=== PATIENT | female | born 1985 | race Caucasian/White ===

== ENCOUNTER 2018-04-30 04:17 | Inpatient (IN) | payer BC ==
[2018-04-30] VITALS (38 sets, daily range): BP systolic 103–145; BP diastolic 57–89; PULSE 63–103; TEMP 97.3–98.8
[~2018-04-30] VITALS: Ht 162.6 cm; Wt 91.8 kg
[2018-04-30] MEDS ORDERED: PRENATAL PO (06:06)
[2018-04-30] MEDS ORDERED: CLARITIN 1010 MG/TAB PO (06:09)
[2018-04-30 06:11] LABS: BASO % 0.3 % (0.0-2.0); EOS # 0.2 (0.0-0.7); EOS % 1.5 % (0-4.0); GRAN # 10.3 (1.4-6.5); GRAN % 76.9 % (42.2-75.2); HEMATOCRIT 36.1 % (37.0-47.0); HEMOGLOBIN 12.3 g/dl (12.5-16.0); LYMPH # 1.6 (1.2-3.4); LYMPH % 11.9 % (20.0-51.0); MEAN CELL VOLUME 92 fl (80.0-100.0); MEAN CORPUSCULAR HEMOGLOBIN 31 pg (27.0-31.0); MEAN CORPUSCULAR HGB CONC 34 g/dl (33.0-37.0); MEAN PLATELET VOLUME 11.6 fl (7.4-10.4); MONO # 1.1 (0.1-0.6); MONO % 8.6 % (1.7-9.3); PLATELET COUNT 188 K/mm3 (130-400); RED BLOOD COUNT 3.92 M/mm3 (4.10-5.30); REDCELL DISTRIBUTION WIDTH-CV 12.2 % (11.5-14.5)
[2018-05-01 01:20] VITALS: BP 108/71; PULSE 95; TEMP 98.6
[2018-05-01 05:15] VITALS: BP 109/72; PULSE 86; TEMP 98.2
[2018-05-01 07:45] VITALS: BP 107/70; PULSE 91; TEMP 98.7
[2018-05-01 07:57] LABS: HEMOGLOBIN 10.9 g/dl (12.5-16.0)
[2018-05-01 07:59] LABS: HEMATOCRIT 31.3 % (37.0-47.0)
[2018-05-01 20:35] VITALS: BP 115/71; PULSE 76; TEMP 97.8
[2018-05-02 07:35] VITALS: BP 111/71; PULSE 78; TEMP 98.4
== END 2018-05-02 11:25 | disposition home or self-care (01) | DRG 775 ==
LOC: LDRO 04:17 → LDR 04:59 → OB 18:15
PROVIDERS: Obstetrics & Gynecology
PROC: 10E0XZZ Delivery of Products of Conception, External Approach (ICD-10-PCS; principal; 2018-04-30)
PROC: 0KQM0ZZ Repair Perineum Muscle, Open Approach (ICD-10-PCS; 2018-04-30)
DX: O70.1 Second degree perineal laceration during delivery (principal); Z37.0 Single live birth; Z3A.39 39 weeks gestation of pregnancy
CPT/HCPCS: J2590; J7120

== ENCOUNTER 2022-02-04 22:52 | Inpatient (IN) | payer BC ==
[~2022-02-04] VITALS: Ht 162.6 cm; Wt 93.6 kg
[~2022-02-04 22:52] MED LIST: CLARITIN 1010 MG/TAB PO; PRENATAL PO
--- NOTE | 2022-02-04 22:55 | NUR ---
G4L1. 40.3. Ambulatory to LDR 3 with spouse. Clean gown on. EFM and TOCO explained and applied. Pt states she thinks her water broke at 2215 tonight, clear fluid noted. Reports contractions started shortly after and states they are about 4 mins apart now. Pt breathing through contractions. Pt denies wanting an epidural. States she went without one with her first baby. Plan of care explained. 2304: SVE /-2. Large amount of clear fluid noted. Amniotrace postive. 2321: called and updated on pts status. Admit orders received.
--- NOTE | 2022-02-04 23:27 | NUR ---
FHR deceleration noted down to 60bpm at lowest point lasting 220seconds with slow return to baseline. 2328: Pt repositioned to left lateral and then to right lateral position with no return to baseline. 2330: Pt assisted into knee chest position. Oxygen administered at 10L via oxymask. 2336: Pt repositioned into angy-fowlers for cervical exam. SVE 4/80 and FSE placed by Jose Roberto BUTT. 2340: IV started and labs obtained via IV site. LR bolus infusing without difficulty. Pt repositioned into knee chest per request.
[2022-02-04 23:30] VITALS: BP 107/70; PULSE 90; TEMP 98.4
[2022-02-05] VITALS (11 sets, daily range): BP systolic 98–117; BP diastolic 56–89; PULSE 70–88; TEMP 98–98.6
--- NOTE | 2022-02-05 | NUR ---
[id number] DIFFICULTY TRACING CONTRACTIONS DUE TO MATERNAL POSITION IN HANDS/KNEES, WILL ADJUST TOCO.
[2022-02-05 00:17] LABS: BASO # 0.1 K/mm3 (0.0-0.2); BASO % 1.1 % (0.0-2.0); EOS # 0.3 K/mm3 (0.0-0.7); EOS % 2.5 % (0.0-4.0); GRAN # 7.1 K/mm3 (1.4-6.5); GRAN % 64.9 % (42.2-75.2); HEMOGLOBIN 13.1 g/dl (12.5-16.0); LYMPH # 2.3 K/mm3 (1.2-3.4); LYMPH % 21.1 % (20.0-51.0); MEAN CELL VOLUME 89 fl (80.0-100.0); MEAN CORPUSCULAR HEMOGLOBIN 32 pg (27-31); MEAN CORPUSCULAR HGB CONC 36 g/dl (33.0-37.0); MEAN PLATELET VOLUME 10.5 fl (7.4-10.4); MONO % 9.5 % (1.7-9.3); PLATELET COUNT 205 K/mm3 (130-400); REDCELL DISTRIBUTION WIDTH-CV 12.2 % (11.5-14.5)
[2022-02-05 00:18] LABS: HEMATOCRIT 36.4 % (37.0-47.0)
--- NOTE | 2022-02-05 01:00 | NUR ---
0100- PT REPOSITIONED TO [facility], DR. ROSENBERG ON UNIT AND NOTIFIED OF SVE OF COMPLETE. 0103- DR. ROSENBERG IN ROOM FOR DELIVERY. DEEP VARIABLES AND LATE DECELS NOTED. BED BROKEN DOWN FOR DELIVERY. 0106- PT BEGINS PUSHING WITH DR. ROSENBERG. FHT'S IN THE 40'S, PT ENCOURAGED TO PUSH. 0110- SPONTANEOUS DELIVERY OF VIABLE BABY BOY. BABY TO MOTHER'S CHEST. CORD CLAMPED BY DR. ROSENBERG AND CUT BY FOB. BABY CARES ASSUMMED BY Robinson COOMBS RN. 0114- SPONTANEOUS DELIVERY OF INTACT PLACENTA THROUGH 1ST DEGREE LACERATION. PITOCIN STARTED AT 333ML/HR PER PROTOCOL. 0116- DR. ROSENBERG GIVES LIDOCAINE PRIOR TO REPAIR OF 1ST DEGREE PERINEAL REPAIR. 0125- RECOVERY STARTED.
[2022-02-05 06:28] LABS: HEMOGLOBIN 11.8 g/dl (12.5-16.0)
[2022-02-05 06:39] LABS: HEMATOCRIT 34.9 % (37.0-47.0)
[2022-02-05] MEDS ORDERED: IBU600 MG PO (09:19)
--- NOTE | 2022-02-05 09:34 | NUR ---
Initial visit attempt; Family resting, Ground Services Instructor left card offering congratulations for the of their son and information regarding the availability of Spiritual Care at our hospital.
[2022-02-06 06:42] VITALS: BP 104/67; PULSE 72; TEMP 97.9
--- NOTE | 2022-02-06 13:00 | NUR ---
Discharge instructions and follow up care reviewed with pt and at the bedside. Both verbalized an understanding, agreed with the plan and states no questions or concerns at this time.
== END 2022-02-06 13:50 | disposition home or self-care (01) | DRG 807 ==
LOC: LDRO 22:52 → OB 23:35 → LDR 23:35 → OB 02-05 04:15
PROVIDERS: ADMIT Obstetrics & Gynecology
PROC: 10E0XZZ Delivery of Products of Conception, External Approach (ICD-10-PCS; principal; 2022-02-05)
PROC: 0HQ9XZZ Repair Perineum Skin, External Approach (ICD-10-PCS; 2022-02-05)
DX: O99.62 Diseases of the digestive system complicating childbirth (principal); Z37.0 Single live birth; K21.9 Gastro-esophageal reflux disease without esophagitis; O69.81X0 Labor and delivery complicated by cord around neck, without compression, not applicable or unspecified; O70.0 First degree perineal laceration during delivery; O71.82 Other specified trauma to perineum and vulva; Z3A.40 40 weeks gestation of pregnancy
CPT/HCPCS: J2590; J7120